=== PATIENT | female | born 1940 | race Caucasian/White ===

== ENCOUNTER 2025-04-20 04:58 | Observation (INO) | payer MEDICARE, SELFPAY ==
[2025-04-19 23:09] VITALS: BP 89/49
[2025-04-19 23:12] VITALS: BP 89/49
[2025-04-19 23:41] LABS: Hematocrit 30.4 % (37.0-47.0); Hemoglobin 10.2 g/dL (12.0-16.0); Mean Corp Hgb Conc. 33.6 g/dL (33.0-37.0); Mean Corpuscular Volume 88.1 fL (81.0-99.0); Nucleated Red Blood Cells % 0 %; Platelet Count 174 10^3/uL (130-400); Red Cell Dist. Width 15.1 % (11.5-14.5)
[2025-04-20] VITALS (29 sets, daily range): BP systolic 70–119; BP diastolic 36–62; PULSE 82; O2SAT 94
[2025-04-20 00:05] LABS: ALT (SGPT) 15 U/L (0-35); AST (SGOT) 37 U/L (14-36); Albumin 3.6 g/dl (3.5-5.0); Alkaline Phosphatase 82 U/L (38-126); Blood Urea Nitrogen 36 mg/dl (7-17); Calcium 9.0 mg/dl (8.4-10.2); Carbon Dioxide 19 mmol/L (22-30); Chloride 106 mmol/L (98-107); Estimated Creatinine Clearance 27 ml/min; Glucose 135 mg/dl (70-99); Potassium 4.0 mmol/L (3.5-5.1); Sodium 135 mmol/L (135-145); Total Protein 5.8 g/dl (6.3-8.2); eGFR 40.05
[2025-04-20] MEDS: NSS 1000 IV ×3 (00:06→08:23)
[2025-04-20 00:53] LABS: COVID-19 Antigen Negative (Negative)
--- NOTE | 2025-04-20 01:02 | ED.GENMED ---
History of Present Illness
<Nasima Dawson MD, Resident - Last Filed: 04/20/25 04:13>
General
Chief Complaint: Change Level of Consciousness
Source: patient and family
Time Seen by Provider: 04/20/25 00:20
History of Present Illness
History of Present Illness:
Rosalino Powell is a 85-year-old female, with past medical history of essential hypertension, frequent UTIs, who recently underwent reverse right sided shoulder replacement,on april.
On her second postoperative day, Saturday, April 19, 2025, she became very sick after her nerve block wire was removed, with fever, chills and an episode of throwing up 4-5 times. They called her surgeon, she was advised to walk around as that
could be the anesthesia wearing off she tried but it did not get better. Around 10 PM, when her son Avni came to check back on her she was incoherent and confused, her saturations were in 80s and her blood pressure was in 80s as well. I called
the EMS services and were brought to the ER.
Denies any cough, chest pain, shortness of breath, abdominal pain, body aches, syncopal or near syncopal episodes.
Past History
<Nasima Dawson MD, Resident - Last Filed: 04/20/25 04:13>
Past History
ED Past Medical History: GERD, HTN and Hypercholesterolemia
Phy Exam
<Nasima Dawson MD, Resident - Last Filed: 04/20/25 04:13>
General Physical Exam
General Presentation: moderate distress
General age: appears stated age
General Skin: warm, dry and other (Bruising over the right shoulder and)
General Mental: alert
General Hydration: dry mucous membranes
Cardiovascular Exam
Cardiovascular Exam: regular rate/rhythm, no edema, no murmur and tachycardia
Pulmonary Exam
Pulmonary Exam: lungs clear and no respiratory distress
Oxygen Status: oxygen 2 liters via NC
Gastrointestinal Exam
Gastrointestinal Exam: normal bowel sounds, non tender and soft
Neurological Exam
Neurological Exam: alert and oriented x3
Musculoskeletal Exam
Musculoskeletal Exam: other (Right shoulder in brace, bruising of right shoulder and arm)
Skin Exam
Skin Exam: warm/dry
Psychiatric Exam
Psychiatric Exam: normal mood/affect
Sepsis
<Nasima Dawson MD, Resident - Last Filed: 04/20/25 04:13>
Sepsis Screening
Sepsis Assessment: Sepsis
Sepsis Screen
Sepsis Screen: Sepsis
Date: 04/20/25
Time: 04:13
Course
<Nasima Dawson MD, Resident - Last Filed: 04/20/25 04:13>
Orders/Labs/Results
Orders:
Orders
04/19/25 23:18
EKG [Electrocardiogram (*1)] Urgent
Reason for Study: Abnormal EKG
Comment: according medics
04/19/25 23:19
EKG- Treatment ONCE
04/19/25 23:33
Complete Blood Count/With Diff Urgent
Comprehensive Metabolic Panel Urgent
04/20/25 00:05
0.9% Sodium Chloride 1000 ml [Nss] 1,000 ml IV BOLUS
04/20/25 00:24
COVID-19 Antigen Urgent
Source: Nasal Swab
Lactic Acid Urgent
Blood Culture Q30M
TANIYA Source: Blood/Venous
Specimen Description:
Influenza A+B Rapid Molecular Urgent
TANIYA Source: Nasal Swab
Specimen Description:
04/20/25 00:42
Straight cath- Treatment ONCE
04/20/25 00:43
CR Chest Portable - 1 View Urgent
Comment:
Reason For Exam: fever, N/V, hypoxia
Reason Study Needs to be Portable: Patient Unstable
04/20/25 01:01
0.9% Sodium Chloride 1000 ml [Nss] 1,000 ml IV BOLUS
04/20/25 01:29
Urinalysis Reflex To Culture Urgent
Date Specimen was Collected: 04/20/25
Time Specimen was Collected: 01:28
Urine Microscopic Reflex Cult Urgent
Blood Culture Q30M
TANIYA Source: Blood/Venous
Specimen Description:
Abnormal Lab Results
04/19/25 04/20/25
23:33 01:29
WBC 15.2 H 10^3/uL
(4.8-10.8)
RBC 3.45 L 10^6/uL
(4.20-5.40)
Hgb 10.2 L g/dL
(12.0-16.0)
Hct 30.4 L %
(37.0-47.0)
RDW 15.1 H %
(11.5-14.5)
Abs Immat Gran (auto) 0.1 H 10^3/uL
(0-0.05)
Absolute Neuts (auto) 12.8 H 10^3/uL
(1.4-6.5)
Absolute Lymphs (auto) 0.3 L 10^3/uL
(1.2-3.4)
Absolute Monos (auto) 1.9 H 10^3/uL
(0.1-0.6)
Immature Gran % 0.9 H %
(0-0.5)
Neutrophils % 83.8 H %
(42.2-75.2)
Lymphocytes % 2.2 L %
(20.5-51.1)
Monocytes % 12.7 H %
(1.7-9.3)
Carbon Dioxide 19 L mmol/L
(22-30)
BUN 36 H mg/dl
(7-17)
Creatinine 1.3 H mg/dL
(0.6-1.0)
Glucose 135 H mg/dl
(70-99)
AST 37 H U/L
(14-36)
Total Protein 5.8 L g/dl
(6.3-8.2)
Urine Bacteria (Reflex) Few A
(Negative)
Urine Albumin (Reflex) 2+ A
(Neg - Trace)
04/19/25 23:33
04/19/25 23:33
Vital Signs
Initial and Last Documented VS:
Initial Vital Signs
Temp Pulse Resp BP Pulse Ox
98.8 F 101 15 89/49 88
04/19/25 23:09 04/19/25 23:09 04/19/25 23:09 04/19/25 23:09 04/19/25 23:09
Last Documented Vital Signs
Temp Pulse Resp BP Pulse Ox
98.8 F 86 14 96/48 95
04/20/25 02:06 04/20/25 03:45 04/20/25 03:45 04/20/25 03:30 04/20/25 03:45
Tommylt;Shelly Reinoso, DO - Last Filed: 04/20/25 03:27>
Orders/Labs/Results
Orders:
Orders
04/19/25 23:18
EKG [Electrocardiogram (*1)] Urgent
Reason for Study: Abnormal EKG
Comment: according medics
04/19/25 23:19
EKG- Treatment ONCE
04/19/25 23:33
Complete Blood Count/With Diff Urgent
Comprehensive Metabolic Panel Urgent
04/20/25 00:05
0.9% Sodium Chloride 1000 ml [Nss] 1,000 ml IV BOLUS
04/20/25 00:24
COVID-19 Antigen Urgent
Source: Nasal Swab
Lactic Acid Urgent
Blood Culture Q30M
TANIYA Source: Blood/Venous
Specimen Description:
Influenza A+B Rapid Molecular Urgent
TANIYA Source: Nasal Swab
Specimen Description:
04/20/25 00:42
Straight cath- Treatment ONCE
04/20/25 00:43
CR Chest Portable - 1 View Urgent
Comment:
Reason For Exam: fever, N/V, hypoxia
Reason Study Needs to be Portable: Patient Unstable
04/20/25 01:01
0.9% Sodium Chloride 1000 ml [Nss] 1,000 ml IV BOLUS
04/20/25 01:29
Urinalysis Reflex To Culture Urgent
Date Specimen was Collected: 04/20/25
Time Specimen was Collected: 01:28
Urine Microscopic Reflex Cult Urgent
Blood Culture Q30M
TANIYA Source: Blood/Venous
Specimen Description:
Abnormal Lab Results
04/19/25 04/20/25
23:33 01:29
WBC 15.2 H 10^3/uL
(4.8-10.8)
RBC 3.45 L 10^6/uL
(4.20-5.40)
Hgb 10.2 L g/dL
(12.0-16.0)
Hct 30.4 L %
(37.0-47.0)
RDW 15.1 H %
(11.5-14.5)
Abs Immat Gran (auto) 0.1 H 10^3/uL
(0-0.05)
Absolute Neuts (auto) 12.8 H 10^3/uL
(1.4-6.5)
Absolute Lymphs (auto) 0.3 L 10^3/uL
(1.2-3.4)
Absolute Monos (auto) 1.9 H 10^3/uL
(0.1-0.6)
Immature Gran % 0.9 H %
(0-0.5)
Neutrophils % 83.8 H %
(42.2-75.2)
Lymphocytes % 2.2 L %
(20.5-51.1)
Monocytes % 12.7 H %
(1.7-9.3)
Carbon Dioxide 19 L mmol/L
(22-30)
BUN 36 H mg/dl
(7-17)
Creatinine 1.3 H mg/dL
(0.6-1.0)
Glucose 135 H mg/dl
(70-99)
AST 37 H U/L
(14-36)
Total Protein 5.8 L g/dl
(6.3-8.2)
Urine Bacteria (Reflex) Few A
(Negative)
Urine Albumin (Reflex) 2+ A
(Neg - Trace)
04/19/25 23:33
04/19/25 23:33
Vital Signs
Initial and Last Documented VS:
Initial Vital Signs
Temp Pulse Resp BP Pulse Ox
98.8 F 101 15 89/49 88
04/19/25 23:09 04/19/25 23:09 04/19/25 23:09 04/19/25 23:09 04/19/25 23:09
Last Documented Vital Signs
Temp Pulse Resp BP Pulse Ox
98.8 F 86 14 96/48 95
04/20/25 02:06 04/20/25 03:45 04/20/25 03:45 04/20/25 03:30 04/20/25 03:45
<Nasima Dawson MD, Resident - Last Filed: 04/20/25 04:13>
MDM/Problems Addressed
Differential Diagnosis Includes:
Sepsis
MDM/Problems Addressed:
Patient visibly dehydrated with dry mucous membrane due to poor oral intake. Short of breath, denies chest pain EKG with sinus tachycardia and normal troponins. Chemistries show a creatinine of 1.3 which is above her baseline confirming
dehydration and no prior history of kidney disease.
Chest x-ray and urinalysis unremarkable
Lactic acid is normal
Seems to be acute dehydration as the culprit of low blood pressures, new oxygen requirement and CANDIDA
Plan admit on hospitalist service for further evaluation
<Nasima Dawson MD, Resident - Last Filed: 04/20/25 04:13>
*Pulse Oximetry
SaO2: 96
Nasal Cannula flow liters per minute: 2
Oxygen Mode of Delivery: Room air
Patient hypoxic: no
*Critical Care Note
Total Time (30-74mins, 75-104mins- exclusive of procedures): Not Applicable
ED Attending Note
<Nasima Dawson MD, Resident - Last Filed: 04/20/25 04:13>
-
Portions of this chart may have been created with voice recognition software.� Occasional wrong word or��sound alike� substitutions may have occurred due to the inherent limitations of voice recognition software.
<Shelly Reinoso DO - Last Filed: 04/20/25 03:27>
ED Attending Note
Patient seen and examined by attending physician: Yes
I performed a history and physical exam of patient and discussed management with resident, I reviewed resident's note and agree with documented findings and plan of care.: Yes
ED Attending Note:
This is an 85-year-old woman with history of hypertension, hyperlipidemia, osteoarthritis who underwent right reverse shoulder replacement on , 3 days ago. Discharged home the following day. Has been taking oxycodone for pain.
This afternoon she was noted to have a low-grade fever which then dissipated.
This evening she developed nausea, vomiting and she believes she has passed some diarrhea. She has had progressive lethargy, weakness and noted to be hypotensive with systolic blood pressure in the 80s prompting call to 911.
Surgical procedure performed at [place].
Paramedics were concerned with sinus tachycardic rhythm with left bundle branch block. According to son, the patient has history of left bundle branch block. The patient denies chest pain, no shortness of breath but was noted to be hypoxic with
room air pulse ox at 88. She has not had a cough.
She has had nausea and vomiting but denies abdominal pain.
She has prior history of UTIs, no recent UTIs and currently denies UTI symptoms.
Son requested patient to be transferred to [facility], which is part of the [facility] and also where he is a nurse supervisor malted [employer]. However, product lead was concern for EKG findings and elected to bring the patient to [place]
[facility] due to concern for an urgent cardiac issue.
She was noted to be hypotensive prehospital.
85-year-old woman appears her stated age, mildly lethargic initially, sensorium has markedly improved/normalized after receiving IV fluid bolus. Systolic blood pressure has improved from 80 systolic to now 90 systolic. She is afebrile.
HEENT: Oral mucosa is significantly dry.
Heart is regular rhythm, mildly tachycardic.
Lungs are clear to auscultation. No respiratory distress.
Abdomen is soft without appreciable tenderness. Normoactive bowel sounds.
Moderate dark purple ecchymosis right shoulder to right upper arm. Minimal tenderness about the right shoulder. Right arm is maintained in an arm sling. Peripheral pulses are full and equal.
Concern for sepsis, gastroenteritis, pneumonia, dehydration, electrolyte abnormality, UTI, acute symptomatic blood loss anemia is less likely.
Will continue IV fluid bolus. Labs are pending. Thus far has not required an antiemetic.
03:15
Sinus tachycardia has resolved. Systolic blood pressure improved to 99 systolic. MAP of 60-65. She remains afebrile.
Lethargy and confusion have resolved with IV fluids.
She continues to require supplemental oxygen but denies shortness of breath. Denies chest pain.
EKG shows sinus tachycardia, left bundle branch block. According to son, left bundle branch block is her baseline.
Labs reveal elevated white blood cell count of 15.2. Hemoglobin of 10.2. On April 18, white blood cell count 8.6. Hemoglobin 10.6.
Chemistries reveal acute kidney injury with creatinine of 1.3, BUN of 36. On April 18, creatinine 0.89/BUN of 26. Patient has no prior history of kidney disease.
Chest x-ray is unremarkable.
Urinalysis is unremarkable.
Lactic acid is normal at 1.4.
I suspect acute GI illness with acute dehydration/acute kidney injury.
Will admit to hospitalist service, continue IV fluid resuscitation.
Discharge Plan
Departure
Patient Disposition: Admit
Date of Disposition: 04/20/25
Time of Disposition: 03:12
Admit to: Telemetry
Admit to doctor: Susana
Presentation/result/management discussed w/ accepting MD/DO: Hospitalist
Condition: Fair
Discharge Problem:
Acute nausea, vomiting, diarrhea, Acute kidney injury due to dehydration, Acute hypoxemic respiratory failure, Postoperative right shoulder replacement
Prescriptions:
No Action
multivitamin Tablet
1 tab PO DAILY
Rx Instructions:
'Mature Multi' according to patient medication list
celecoxib 200 mg Capsule
200 mg PO DAILY
acetaminophen 325 mg Tablet
650 mg PO Q6H PRN (Reason: pain)
gabapentin 600 mg Tablet
600 mg PO DAILY
lisinopril 20 mg Tablet
20 mg PO DAILY
sertraline 100 mg Tablet
100 mg PO DAILY
ketorolac 10 mg Tablet
10 mg PO Q6H PRN (Reason: pain)
Rx Instructions:
maximum total duration of 5 days from all oral, intranasal, or parenteral formulations
levothyroxine 50 mcg Tablet
50 mcg PO DAILY
aspirin 81 mg Tablet
81 mg PO DAILY
nifedipine 60 mg Tablet Extended Release
60 mg PO DAILY
oxycodone 5 mg Tablet
5 mg PO Q6H PRN (Reason: pain)
rosuvastatin 10 mg Tablet
10 mg PO DAILY
omeprazole 20 mg Tablet,Delayed Release (Dr/Ec)
20 mg PO DAILY
calcium 26-magnesium 15-zinc 167 mg calcium- 83 mg-5 mg Capsule
1 cap PO DAILY
Rx Instructions:
'Calcium w/ Zinc' according to home medication list
Referrals:
Sujata Redd MD [Family Provider, Family Practice]
Interventions
Interventions:
*Risk Screen - Suicide Last Done: 04/19/25 23:20
*General Assessment Last Done: 04/19/25 23:20
*Neglect/Abuse Screening Last Done: 04/19/25 23:20
*ED COVID-19 Vaccine History Last Done: 04/19/25 23:20
*ED Influenza Vaccine History Last Done: 04/19/25 23:20
[facility] Fall Risk Assessment Tool Last Done: 04/19/25 23:31
ED- Cardiac Assessment Last Done: 04/19/25 23:28
ED- Neurological Assessment Last Done: 04/19/25 23:19
ED-Psychological Assessment Last Done: 04/19/25 23:29
ED- Pulmonary Assessment Last Done: 04/19/25 23:19
Discharge Date and Time
Print Language: NICARAGUAN
[2025-04-20 01:59] LABS: Urine Character Clear (Clear)
[2025-04-20 02:57] LABS: Urine Squamous Cell 0-2 /LPF (Few)
[2025-04-20 02:58] LABS: Urine Red Blood Cell 0-2 /HPF (0-2)
--- NOTE | 2025-04-20 04:25 | HPS.HSE ---
Family Physician
-
Family Physician: Sujata Redd
Chief Complaint
-
Altered mental status
History of Present Illness
This is a 85-year-old with past medical history significant for hypertension, hyperlipidemia, hypothyroid, GERD, postop day #3 status post right shoulder revision [facility] who presents to the emergency department via EMS for episode of
altered mental status and hypotension at home.
Patient underwent this elective procedure due to failure of her previous shoulder repair. This was done at [facility] by Dr. Rambo Jimenes. Patient did have general anesthesia and went home with a local block and oral pain medications.
Patient was doing well at home initially. She was able to ambulate and was tolerating the pain. However the nerve block was not functional so the line was removed and patient was giving oxycodone earlier in the day. Later on she had an episode of
a fever 100.4. They did reach out to the physicians after patient was given Tylenol. Fever did resolve. She had no other symptoms. Later on she started complaining of chills but did not have a fever. She was shaking. The covering physician
stated that this may be secondary to anesthesia and should resolve. Patient had not been tolerating much p.o. although she did have a bowel movement yesterday. At around dinnertime she tried to drink some water this was at 4 PM and she immediately
vomited. Soon after the vomiting she became less responsive. She appeared ashen according to son. She had a blank stare and was not responsive. When EMS arrived they could not get a blood pressure but ultimately got a blood pressure of 80
systolic. They also placed her on oxygen she was satting 88% on room air. They noted a wide-complex rhythm on ECG and brought patient to for cardiac evaluation. On arrival in the ED she did have a straight cath with 600 cc residual urine.
Initial blood pressure was as low as 70/50, after 2 L of fluid she now has a blood pressure of 100/50. Pulse rate was 86 she was satting 96% on 2 L currently. Chest x-ray shows no acute infiltrates. ECG with normal sinus rhythm at rate of 96 and
a normal mild left bundle branch block. White count was 15.2, hemoglobin and platelets were normal. Electrolytes were stable. BUN/creatinine were elevated compared to her baseline at 37.3. Baseline creatinine was 0.8. Glucose was normal. LFTs
were normal. UA was negative. COVID and influenza test were negative.
Medical History
Past Medical History
Past Medical History: Reports GERD, HTN, Hypercholesterolemia and Hypothyroidism
Past Surgical History: Reports Bowel Resection (For recurrent diverticulitis), Gynocological (Hysterectomy) and Orthopedic (Bilateral hip replacement)
Social History
Tobacco: Non-smoker
Alcohol: None
Drug: None
Personal:
Living: With Family
Employment: Retired
Family History
Family History: Not pertinent
Allergies / Home Medications
Allergies reflects when Allergies were last updated in [facility] [employer].
Home Medications with original date entered in [facility] [employer]
Allergy/Medication List:
Allergies
Allergy/AdvReac Type Severity Reaction Status Date / Time
solifenacin Allergy Unknown Verified 04/19/25 23:31
Home Medications
acetaminophen 325 mg tablet 650 mg PO Q6H PRN pain 04/20/25
aspirin 81 mg tablet 81 mg PO DAILY 04/20/25
calcium no.26 167 mg-magnesium no.15 83 mg-zinc 5 mg capsule 1 cap PO DAILY 04/20/25
celecoxib 200 mg capsule 200 mg PO DAILY 04/20/25
gabapentin 600 mg tablet 600 mg PO DAILY 04/20/25
ketorolac 10 mg tablet 10 mg PO Q6H PRN pain 04/20/25
levothyroxine 50 mcg tablet 50 mcg PO DAILY 04/20/25
lisinopril 20 mg tablet 20 mg PO DAILY 04/20/25
multivitamin 1 tab PO DAILY 04/20/25
nifedipine 60 mg tablet,extended release 60 mg PO DAILY 04/20/25
omeprazole 20 mg tablet,delayed release 20 mg PO DAILY 04/20/25
oxycodone 5 mg tablet 5 mg PO Q6H PRN pain 04/20/25
rosuvastatin 10 mg tablet 10 mg PO DAILY 04/20/25
sertraline 100 mg tablet 100 mg PO DAILY 04/20/25
Review of Systems
-
Unable to obtain full review of systems at this time due to: Acuity
Physical Exam
Vital Signs
Vital Signs
Temp Pulse Resp BP Pulse Ox
98.8 F 86 14 96/48 95
04/20/25 02:06 04/20/25 03:45 04/20/25 03:45 04/20/25 03:30 04/20/25 03:45
Physical Exam
General: Well Developed and No Apparent Distress
HEENT: NormoCephalic and Atraumatic
Respiratory: Clear
Cardiac: S1/S2 and Regular Rhythm; No Murmur or Rub
GI: Soft, Non Tender, Non Distended and Normal Bowel Sounds; No Organomegaly
Rectal: Deferred by Provider
Genito-urinary: Deferred by me
Musculoskeletal: No Clubbing, No Cyanosis and Other (Right shoulder dressing clean dry and intact, no significant erythema or edema. Did not move the joint significantly to test range of motion at this time. No distal paresthesia.)
Skin: No Rash
Neuro: AO x 3 and Nonfocal/grossly intact
Psych: Calm
Laboratory Results
-
04/19/25 23:33
04/19/25 23:33
Laboratory Results
Lactic Acid 1.4 mmol/L (0.7-2.0) 04/20/25 00:24
Total Bilirubin 1.1 mg/dl (0.2-1.3) 04/19/25 23:33
AST 37 U/L (14-36) H 04/19/25 23:33
ALT 15 U/L (0-35) 04/19/25 23:33
Alkaline Phosphatase 82 U/L (38-126) 04/19/25 23:33
Data Reviewed
-
Diagnostic Radiology: Image Personally Visualized and interpreted
Medical Tests (Nuc Med, Echo, EKG etc): Image Personally Visualized and interpreted
Lab Data: Labs Reviewed by me
Impression/Plan
-
IMPRESSION:
85-year-old with history of hypertension, hyperlipidemia, hypothyroid who is postop day #4 now status post a right shoulder reversal surgery presenting to the emergency department after episode of fever and then nausea and vomiting at home, found to
be hypotensive and hypoxic by EMS and brought to the emergency department for concern of abnormal EKG. ECG shows a normal sinus rhythm with a left bundle, chest x-ray is clear, patient was initially hypotensive here but responded to IV fluids and
blood pressure is now in the 100 systolic although still low for. Creatinine is elevated 1.3 from a baseline of 0.8. She does have leukocytosis to 15.2. Viral testings are negative. UA was negative and she shows no focal tenderness swelling or
erythema to suggest an acute infection. No significant prior cardiac history except for hypertension. Suspect possibly a vasovagal episode versus dehydration. Currently alert and oriented x 3.
PLAN:
Hypotensive episode -hypovolemia versus dehydration. Patient had minimal p.o. intake since surgery on and she has continued on antihypertensive regimen including nifedipine and lisinopril. Also possibility of medication induced hypotension
� Admit to telemetry observation
� Improving with IV fluids, continue normal saline at 100 mL/h for now
� Hold nifedipine, hold lisinopril
� Trend troponins
� Check orthostatic vital signs
�Antiemetics as needed
� Blood cultures sent and pending
� Will start antibiotics to cover prosthetic infection and cellulitis afebrile, then transferred to [place] (orthopedic surgeon was Dr. Rambo Jimenes of the [facility])
Hypoxia�suspect postanesthesia. X-ray is clear for now. Cannot rule out a PE entirely at this time. However no chest pain.
� IV fluids as above.
� Incentive spirometry
� Check D-dimer
Right shoulder arthroplasty -
- Continue pain management with oxycodone and Toradol
� Acetaminophen as needed
� Transfer to [facility] if any compromise suspected
� PT consult
Hypertension
� Holding lisinopril and Norvasc for now
Hypothyroid
� Continue levothyroxine
DVT prophylaxis�heparin sq
CODE STATUS�full code
[2025-04-20] MEDS: DUONEB 3 ML INH ×4 (07:45→20:04)
[2025-04-20] MEDS: SYNTHROID 50 MCG PO (08:21)
[2025-04-20] MEDS: ROXICODONE 5 MG PO ×2 (08:21→23:38)
[2025-04-20] MEDS: ASPIR LOW (ENTERIC COATED) 81 MG PO (08:21)
[2025-04-20] MEDS: ZOLOFT 100 MG PO (08:21)
[2025-04-20] MEDS: CELEBREX 200 MG PO (08:22)
[2025-04-20] MEDS: PROTONIX 40 MG PO (08:22)
[2025-04-20] MEDS: NEURONTIN 600 MG PO (08:22)
[2025-04-20] MEDS: CRESTOR 10 MG PO (08:22)
[2025-04-20 09:49] LABS: Hematocrit 25.2 % (37.0-47.0); Hemoglobin 8.3 g/dL (12.0-16.0); Mean Corp Hgb Conc. 32.9 g/dL (33.0-37.0); Mean Corpuscular Volume 90.6 fL (81.0-99.0); Nucleated Red Blood Cells % 0 %; Platelet Count 165 10^3/uL (130-400); Red Cell Dist. Width 15.2 % (11.5-14.5)
[2025-04-20 10:05] LABS: D-Dimer 5.73 ug/mlFEU (0.00-0.50)
[2025-04-20 10:10] LABS: ALT (SGPT) 13 U/L (0-35); AST (SGOT) 33 U/L (14-36); Albumin 3.1 g/dl (3.5-5.0); Alkaline Phosphatase 70 U/L (38-126); Blood Urea Nitrogen 32 mg/dl (7-17); Calcium 8.4 mg/dl (8.4-10.2); Carbon Dioxide 22 mmol/L (22-30); Chloride 108 mmol/L (98-107); Estimated Creatinine Clearance 39 ml/min; Glucose 128 mg/dl (70-99); Potassium 4.1 mmol/L (3.5-5.1); Sodium 137 mmol/L (135-145); Total Protein 5.2 g/dl (6.3-8.2); eGFR > 60.00
[2025-04-20 10:12] LABS: Troponin I 0.020 ng/ml
--- NOTE | 2025-04-20 14:19 | W.PN.HOSP.TC ---
Today's Communication/Plan
-
Check CT chest, trend troponins, IVF, PT/OT
Assessment / Plan
Assessment / Plan
85M with HTN, HLD, hypothyroidism, who is postop day #5 s/p a R rTSA p/w episode of fever and then nausea and vomiting at home, found to be hypotensive and hypoxic by EMS and brought to the emergency department for concern of abnormal EKG.
Hypotensive episode
-hypovolemia versus dehydration. Patient had minimal p.o. intake since surgery on and she has continued on antihypertensive regimen including nifedipine and lisinopril. Also possibility of medication induced hypotension
� Improving with IV fluids, continue normal saline at 100 mL/h for now
� Hold nifedipine, hold lisinopril
� Trend troponins, WNL
� Check orthostatic vital signs
� Antiemetics as needed
� Blood cultures sent and pending. Leukocytosis noted, not on empiric antibiotics
Hypoxia
X-ray is clear. Cannot rule out a PE entirely at this time.
� Incentive spirometry
� Elevated D-dimer, check CT PE
Right shoulder arthroplasty
- Continue pain management with oxycodone and Toradol
� Acetaminophen as needed
� Transfer to [facility] if any compromise suspected (orthopedic surgeon was Dr. Rambo Jimenes of the [facility])
� PT/OT consult
Continue oxycodone PRN, gabpentin
Hypertension
� Holding lisinopril and nifedipine for now, BP controlled
Check orthostatic VS
Hypothyroid
� Continue levothyroxine
DVT prophylaxis�heparin sq
CODE STATUS�full code
Anticipated Discharge: 24 - 48 hours
Subjective/Interval History
-
Date of Service: April 20, 2025
Patient states she is feeling well, denies SOB, denies chest pain, denies palpitations. Son at bedside, updated on plan of care and answered questions as able.
Objective Data
-
Labs:
Laboratory Results
04/20/25
09:37
WBC 13.5 H
Hgb 8.3 L
Hct 25.2 L
Plt Count 165
Sodium 137
Potassium 4.1
Chloride 108 H
Carbon Dioxide 22
BUN 32 H
Creatinine 0.9
Glucose 128 H
Calcium 8.4
Total Bilirubin 0.7
AST 33
ALT 13
Alkaline Phosphatase 70
Vital Signs:
Vital Signs
Temp Pulse Resp BP Pulse Ox
98.4 F 86 20 114/54 97
04/20/25 12:33 04/20/25 12:33 04/20/25 12:33 04/20/25 12:33 04/20/25 12:33
I&O
04/19/25 04/20/25 04/21/25
06:59 06:59 06:59
Output Total 900 / 900
Balance -900 / -900
Review of Systems
-
History Source: Patient
All other systems: Reviewed and negative
Physical Exam
-
General: No Apparent Distress
HEENT: Moist Mucous Membranes, Anicteric and PERRLA
Respiratory: Clear to Auscultation; Negative Wheezes, Rales or Rhonchi
Cardiac: Regular Rhythm and S1/S2; Negative Murmur, Rub or Gallop
GI: Soft, Nontender, Nondistended and Normal Bowel Sounds
Musculoskeletal: No Edema and Other (RUE in sling. Moves right hand and fingers, sensation intact. )
Skin: Warm, Dry and Other (RUE dressing C/D/dry, surrounding bruising, soft, nontender, not indurated); Negative Rash, Ulcers or Lesions
Neuro: Awake and AO x 3
Hematologic / Lymphatic: No Lymphadenopathy
Psych: Calm
Data Reviewed
-
Diagnostic Radiology: Report Reviewed by me, Discussed with Patient and Discussed with Family
Labs: Labs Reviewed by me, Discussed with Nurse, Discussed with Patient and Discussed with Family
Old Records: Reviewed
--- NOTE | 2025-04-20 14:35 | CM ---
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 They live in 1 story home with 3 steps to enter.She is independent in all ADLs and drives.She use walker as needed.Advanced directive pkg given .Spoke with Moy crain
[phone] at bedside. MARISCAL letter explained and son signed MARISCAL on chart.
Pharmacy [facility]
PCP DR Salinas
PLAN Will need PT evals for dc plan
[2025-04-20 16:21] LABS: Troponin I 0.026 ng/ml
[2025-04-21 00:05] LABS: Troponin I 0.019 ng/ml
[2025-04-21 03:00] VITALS: BP 120/55
[2025-04-21 05:50] LABS: Hematocrit 22.8 % (37.0-47.0); Hemoglobin 7.7 g/dL (12.0-16.0); Mean Corp Hgb Conc. 33.8 g/dL (33.0-37.0); Mean Corpuscular Volume 88.0 fL (81.0-99.0); Platelet Count 136 10^3/uL (130-400); Red Cell Dist. Width 15.1 % (11.5-14.5)
[2025-04-21 05:57] LABS: D-Dimer 3.97 ug/mlFEU (0.00-0.50)
[2025-04-21 06:15] LABS: Blood Urea Nitrogen 21 mg/dl (7-17); Calcium 8.8 mg/dl (8.4-10.2); Carbon Dioxide 22 mmol/L (22-30); Chloride 107 mmol/L (98-107); Estimated Creatinine Clearance 50 ml/min; Glucose 102 mg/dl (70-99); HDL Cholesterol 50 mg/dl; LDL Cholesterol, Calculated 52 mg/dl; Potassium 4.0 mmol/L (3.5-5.1); Sodium 135 mmol/L (135-145); Very Low Density Lipoprotein 12 mg/dl (0-30); eGFR > 60.00
[2025-04-21 06:16] LABS: Troponin I 0.018 ng/ml
[2025-04-21 06:46] LABS: TSH 0.09 uIU/ml (0.47-4.68)
[2025-04-21] MEDS: DUONEB 3 ML INH (07:22)
[2025-04-21 07:29] VITALS: BP 146/73
[2025-04-21] MEDS: PROTONIX 40 MG PO (07:47)
[2025-04-21] MEDS: ZOLOFT 100 MG PO (07:47)
[2025-04-21] MEDS: ASPIR LOW (ENTERIC COATED) 81 MG PO (07:47)
[2025-04-21] MEDS: CELEBREX 200 MG PO (07:47)
[2025-04-21] MEDS: NEURONTIN 600 MG PO (07:47)
[2025-04-21] MEDS: CRESTOR 10 MG PO (07:47)
[2025-04-21] MEDS: ROXICODONE 5 MG PO (09:06)
--- NOTE | 2025-04-21 10:03 | W.PN.HOSP.TC ---
Addendum entered and electronically signed by Mago Herbert MD 04/21/25 17:14:
Addendum
Met with son at bedside. Discussed with son with pt's permission and updated him.
Discussed with rn case mgr, okay to discharge with home care
End
Original Note:
Today's Communication/Plan
-
dc later today
Assessment / Plan
Assessment / Plan
85M with HTN, HLD, hypothyroidism, who is postop day #5 s/p a R rTSA p/w episode of fever and then nausea and vomiting at home, found to be hypotensive and hypoxic by EMS and brought to the emergency department for concern of abnormal EKG.
# Hypotensive episode
Resolved
Tolerating diet well. No sob, not dizzy, no chest pain.
- combination of hypovolemia/ dehydration/ Patient had minimal p.o. intake since surgery on / taking antihypertensive regimen including nifedipine and lisinopril.
� Improving with IV fluids, continue normal saline at 100 mL/h for now
� Held nifedipine, held lisinopril
� Trend troponin, WNL
� Antiemetics as needed
� Blood cultures ' NGTD. Leukocytosis noted and c/w reactive, not on empiric antibiotics, resolved.
#Hypoxia, resolved.
X-ray is clear. Cannot rule out a PE entirely at this time.
� Incentive spirometry
� Elevated D-dimer, check CT: no pE. Mild bilateral lower lobe dependent subsegmental atelectasis
#Acute blood loss anemia/ FOREST due to fracture bruising
Will start her on oral Iron, give IV iron while in hospital
#Right shoulder arthroplasty
- Continue pain management with oxycodone and Toradol
� Acetaminophen as needed
�Marco Santos, orthopedic surgeon was Dr. Rambo Jimenes of the [facility])
� PT/OT consulted
Continue oxycodone PRN, gabapentin
#Hypertension
cam go back to her medications but lower dose of lisinopril to half for now
No chest pain, no sob
Hypothyroid
� Continue levothyroxine
DVT prophylaxis�heparin sq
CODE STATUS�full code
Total discharge time spent to see the patient, examined the patient, reviewed data and lab result, discuss discharge plan with patient, nursing staff around 65 minutes
Anticipated Discharge: Today
Subjective/Interval History
-
Date of Service: April 21, 2025
She is requesting discharge
No chest pain
She is requesting oxycodone script upon discharge
Objective Data
-
Labs:
Laboratory Results
04/21/25
05:20
WBC 6.9
Hgb 7.7 L
Hct 22.8 L
Plt Count 136
Sodium 135
Potassium 4.0
Chloride 107
Carbon Dioxide 22
BUN 21 H
Creatinine 0.7
Glucose 102 H
Calcium 8.8
Vital Signs:
Vital Signs
Temp Pulse Resp BP Pulse Ox
97.8 F 99 18 146/73 96
04/21/25 07:29 04/21/25 07:29 04/21/25 07:29 04/21/25 07:29 04/21/25 08:15
I&O
04/20/25 04/21/25 04/22/25
06:59 06:59 06:59
Intake Total 960 / 960
Output Total 900 / 900
Balance -900 / -900 960 / 960
[2025-04-21 10:21] LABS: Iron < 20 ug/dl (37-170)
[2025-04-21] MEDS: DUONEB INH ×2 (11:02→14:49)
[2025-04-21 11:10] VITALS: BP 114/49
[2025-04-21] MEDS: FERRLECIT 110 MG IV (11:51)
[2025-04-21 15:00] VITALS: BP 129/55
--- NOTE | 2025-04-21 15:04 | VNURNOTE ---
Home Health Liaison met with patient and son at bedside to discuss [facility] nurse/therapy, visits, schedule and homebound status. Patient is agreeable and understands that visits at home will be 2-3 x per week to assess and teach medical management.
s/p R shoulder surgery POD [address] Rambo Jimenes at [facility].
Patient is aware that [facility] will contact them for start of care within a week after discharge from . Provided contact number for [facility].
[facility] referral completed in [facility].
--- NOTE | 2025-04-21 16:04 | W.DCSUMMARY ---
Discharge Summary
Discharge Data
Date of Admission: 04/20/25
Date of Discharge: 04/21/25
-
Pending Results: No
Hospital Course
85 years old female presented the hospital with weakness. She was postop right shoulder revision at [facility]. Patient was found to have weakness with hypotension/dehydration. Her hypotension believed to be combination of
dehydration/hypovolemia with poor oral intake and taking her antihypertensive medications. Her blood pressure medications were held. Blood pressure improved with IV fluid. She tolerated diet. Patient was advised to resume her blood pressure
medication but lower dose of lisinopril. Patient was found to have acute blood loss anemia. She had iron deficiency anemia was given IV iron. She was discharged on oral iron therapy. Patient was evaluated by physical therapy and recommended home
health services. Patient remained hemodynamically stable and was discharged in a stable condition.
Discharge Plan
-
Patient Disposition: Home with Home Care
Discharge Diagnosis/Procedures: Iron deficiency anemia, you were given IV iron. Continue taking oral iron. Use laxative as Dulcolax as needed
- Hypertension, we lowered the dose of lisinopril. Monitor your blood pressure and follow-up with your primary care doctor
Diet: As tolerated
Referrals:
Sujata Redd MD [Family Provider, [facility]]
Prescriptions:
New
acetaminophen [Tylenol Extra Strength] 500 mg Tablet
1,000 mg PO TID Qty: 20 0RF
ferrous sulfate 325 mg (65 mg iron) tablet
325 mg PO DAILY Qty: 30 0RF
Continued
multivitamin Tablet
1 tab PO DAILY
Rx Instructions:
'Mature Multi' according to patient medication list
celecoxib 200 mg Capsule
200 mg PO DAILY
gabapentin 600 mg Tablet
600 mg PO DAILY
sertraline 100 mg Tablet
100 mg PO DAILY
levothyroxine 50 mcg Tablet
50 mcg PO DAILY
aspirin 81 mg Tablet
81 mg PO DAILY
nifedipine 60 mg Tablet Extended Release
60 mg PO DAILY
rosuvastatin 10 mg Tablet
10 mg PO DAILY
omeprazole 20 mg Tablet,Delayed Release (Dr/Ec)
20 mg PO DAILY
calcium 26-magnesium 15-zinc 167 mg calcium- 83 mg-5 mg Capsule
1 cap PO DAILY
Rx Instructions:
'Calcium w/ Zinc' according to home medication list
Changed
lisinopril 20 mg Tablet
10 mg PO DAILY Qty: 0 0RF
Discontinued
acetaminophen 325 mg Tablet
650 mg PO Q6H PRN (Reason: pain)
ketorolac 10 mg Tablet
10 mg PO Q6H PRN (Reason: pain)
Rx Instructions:
maximum total duration of 5 days from all oral, intranasal, or parenteral formulations
oxycodone 5 mg Tablet
5 mg PO Q6H PRN (Reason: pain)
Discharge Orders:
Discharge Patient (As Directed); Ordered 04/21/25
Ordered By: Mago Herbert
Discharge Date and Time
Print Language: GREEK
== END 2025-04-21 17:16 | disposition home health service (06) ==
LOC: 3 WEST ACU 04:58
PROVIDERS: Internal Medicine; ADMITTING PHYSICIAN Internal Medicine; ATTENDING PHYSICIAN Internal Medicine; EMERGENCY PHYSICIAN Emergency Medicine; FAMILY PHYSICIAN Family Medicine
DX: D62 Acute posthemorrhagic anemia (principal); S40.011A Contusion of right shoulder, initial encounter; D50.9 Iron deficiency anemia, unspecified; E86.0 Dehydration; E86.1 Hypovolemia; I95.9 Hypotension, unspecified; I10 Essential (primary) hypertension; Z79.890 Hormone replacement therapy; D72.829 Elevated white blood cell count, unspecified; J98.11 Atelectasis; R09.02 Hypoxemia; E89.0 Postprocedural hypothyroidism; Z96.611 Presence of right artificial shoulder joint; Z79.82 Long term (current) use of aspirin; Z79.1 Long term (current) use of non-steroidal anti-inflammatories (NSAID); Z79.899 Other long term (current) drug therapy; E78.00 Pure hypercholesterolemia, unspecified; I44.7 Left bundle-branch block, unspecified; Z87.440 Personal history of urinary (tract) infections; Z90.710 Acquired absence of both cervix and uterus; Z96.643 Presence of artificial hip joint, bilateral; K21.9 Gastro-esophageal reflux disease without esophagitis
CPT/HCPCS: 51701; 71045; 71275; 80048; 80053; 80061; 81003; 81015; 83540; 83605; 84443; 84484; 85025; 85027; 85379; 87040; 87502; 87811; 93005; 94640; 96360; 96361; 97162; 97166; 99285; G0378; J2916; Q9967